=== PATIENT | female | born 1980 | race Caucasian/White ===

== ENCOUNTER 2017-12-21 10:41 | Emergency (ER) | payer OTHER ==
[~2017-12-21] VITALS: Ht 157.5 cm; Wt 68.1 kg
[2017-12-21] MEDS ORDERED: PRAZ1 PO (11:17)
[2017-12-21] MEDS ORDERED: SERT50TA12 PO (11:17)
[2017-12-21] MEDS ORDERED: LURA40 PO (11:17)
[2017-12-21] MEDS ORDERED: LOPERAMIDE HCL 2 MG CAPSULE PO ONE (11:45)
[2017-12-21] MEDS ORDERED: ONDANSETRON HCL 4 MG/2 ML VIAL IVP ONE (11:45)
[2017-12-21] MEDS ORDERED: SODIUM CHLORIDE 0.9% 1,000 ML IV ONE (11:45)
[2017-12-21 12:06] LABS: ANION GAP 10 mmol/L (8-16); CALCIUM, TOTAL 9.5 mg/dL (8.8-10.5); CARBON DIOXIDE 26 mmol/L (22-29); CHLORIDE 104 mmol/L (98-107); CREATININE 0.92 mg/dL (0.60-1.30); GLOMERULAR FILTR. RATE CALC > 60 mL/min (>60); GLUCOSE,RANDOM 101 mg/dL (70-110); POTASSIUM 4.5 mmol/L (3.5-5.1); SODIUM SERUM 140 mmol/L (136-145); UREA NITROGEN, BLOOD 15 mg/dL (7-18)
[2017-12-21 12:09] LABS: BASOPHILS % (AUTO) 0.6 % (0.0-2.0); EOSINOPHILS % (AUTO) 1.7 % (1.0-6.0); HEMATOCRIT 40.5 % (36-46); HEMOGLOBIN 13.8 g/dL (12.0-16.0); LYMPHOCYTES # (AUTO) 1.7 K/uL (1.0-4.8); LYMPHOCYTES % (AUTO) 23.2 % (22.0-44.0); MEAN CORPUSCULAR HEMOGLOBIN 28.2 pg (26.0-34.0); MEAN CORPUSCULAR HGB CONC 34.1 G/dL (31.0-37.0); MEAN CORPUSCULAR VOLUME 83 fL (80-100); MONOCYTES # (AUTO) 0.7 K/uL (0.1-1.0); MONOCYTES % (AUTO) 9.4 % (2.0-9.0); NEUTROPHILS # (AUTO) 4.7 K/uL (1.8-7.7); NEUTROPHILS % (AUTO) 65.1 % (40.0-70.0); PLATELET COUNT (AUTO) 309 K/uL (150-450); RED BLOOD CELL COUNT(AUTO) 4.89 MIL/uL (4.00-5.20); RED CELL DISTRIBUTION WIDTH 15.1 % (11.5-14.5)
[2017-12-21 12:14] LABS: ALANINE AMINOTRANSFERASE 68 U/L (12-78); ALBUMIN 4.1 g/dL (3.4-5.0); ALKALINE PHOSPHATASE 63 U/L (46-116); ASPARTATE AMINOTRANSFERASE 36 U/L (15-37); BILIRUBIN,TOTAL 0.4 mg/dL (0.1-1.0); TOTAL PROTEIN, SERUM 8.1 g/dL (6.4-8.2)
[2017-12-21 13:26] VITALS: BP 121/83
== END 2017-12-21 13:40 | disposition home or self-care (01) ==
LOC: EMS 11:10
DX: R11.2 Nausea with vomiting, unspecified (principal); R19.7 Diarrhea, unspecified
CPT/HCPCS: 36415; 80053; 84703; 85025; 96361; 96374; 99284; J2405; J7030

== ENCOUNTER 2018-03-12 12:24 | Inpatient (IN) | payer MEDICAID, OTHER ==
[~2018-03-12] VITALS: Ht 157.5 cm; Wt 79.2 kg
[~2018-03-12 12:24] MED LIST: LURA40 PO; PRAZ1 PO; SERT50TA12 PO
[2018-03-12 13:03] LABS: BASOPHILS % (AUTO) 0.7 % (0.0-2.0); EOSINOPHILS % (AUTO) 0.7 % (1.0-6.0); HEMATOCRIT 40.9 % (36-46); LYMPHOCYTES % (AUTO) 16.9 % (22.0-44.0); MEAN CORPUSCULAR HEMOGLOBIN 28.9 pg (26.0-34.0); MEAN CORPUSCULAR HGB CONC 34.2 G/dL (31.0-37.0); MEAN CORPUSCULAR VOLUME 84 fL (80-100); MONOCYTES # (AUTO) 0.6 K/uL (0.1-1.0); MONOCYTES % (AUTO) 9.6 % (2.0-9.0); NEUTROPHILS # (AUTO) 4.5 K/uL (1.8-7.7); NEUTROPHILS % (AUTO) 72.1 % (40.0-70.0); PLATELET COUNT (AUTO) 330 K/uL (150-450); RED BLOOD CELL COUNT(AUTO) 4.84 MIL/uL (4.00-5.20); RED CELL DISTRIBUTION WIDTH 14.6 % (11.5-14.5)
[2018-03-12 13:07] LABS: ANION GAP 12 mmol/L (8-16); CALCIUM, TOTAL 8.7 mg/dL (8.8-10.5); CARBON DIOXIDE 27 mmol/L (22-29); CHLORIDE 102 mmol/L (98-107); CREATININE 0.84 mg/dL (0.60-1.30); GLOMERULAR FILTR. RATE CALC > 60 mL/min (>60); GLUCOSE,RANDOM 112 mg/dL (70-110); SODIUM SERUM 141 mmol/L (136-145); UREA NITROGEN, BLOOD 8 mg/dL (7-18)
[2018-03-12 13:13] LABS: ALANINE AMINOTRANSFERASE 74 U/L (12-78); ALBUMIN 4.1 g/dL (3.4-5.0); ALKALINE PHOSPHATASE 59 U/L (46-116); ASPARTATE AMINOTRANSFERASE 38 U/L (15-37); BILIRUBIN,TOTAL 0.4 mg/dL (0.1-1.0); TOTAL PROTEIN, SERUM 7.8 g/dL (6.4-8.2)
[2018-03-12] MEDS ORDERED: LORazepam 1 MG TABLET PO ONE (13:30)
[2018-03-12] MEDS ORDERED: POTASSIUM CHLORIDE 20 MEQ ER TABLET PO ONE (13:30)
[2018-03-12] MEDS ORDERED: LORazepam 2 MG TABLET PO PRN (13:45)
[2018-03-12 14:04] LABS: AMPHET/METH SCREEN,URINE POSITIVE (NEGATIVE); BARBITURATE SCREEN, URINE NEGATIVE (NEGATIVE); BENZODIAZEPINES SCREEN,URINE NEGATIVE (NEGATIVE); CANNABINOID SCREEN,URINE NEGATIVE (NEGATIVE); COCAINE SCREEN,URINE NEGATIVE (NEGATIVE); METHADONE SCREEN, URINE NEGATIVE (NEGATIVE); OPIATE SCREEN,URINE NEGATIVE (NEGATIVE)
[2018-03-12 14:05] LABS: PHENCYCLIDINE SCREEN,URINE NEGATIVE (NEGATIVE)
[2018-03-12] MEDS: HALOPERIDOL 5 MG TABLET PO PRN (16:59)
[2018-03-12 19:27] VITALS: BP 135/89
[2018-03-12] MEDS: ZOLPIDEM TARTRATE 10 MG TABLET PO PRN (20:10)
[2018-03-12] MEDS ORDERED: LORazepam 2 MG/ML VIAL IM ONE (20:45)
[2018-03-12] MEDS ORDERED: DiphenhydrAMINE HCL 50 MG/ML VIAL IM ONE (20:45)
[2018-03-12] MEDS ORDERED: HALOPERIDOL LACTATE 5 MG/ML VIAL IM ONE (20:45)
[2018-03-13 09:05] LABS: CHOL/HDL RATIO 6.2 (3.9-5.7); FREE T4 (FREE THYROXINE) 0.88 ng/dL (0.76-1.46); POTASSIUM 3.3 mmol/L (3.5-5.1); THYROID STIMULATING HORMONE 9.42 uIU/mL (0.36-3.74)
[2018-03-13] MEDS: NICOTINE 21 MG/24 HOUR PATCH TD SCH (09:19)
[2018-03-13] MEDS ORDERED: POTASSIUM CHLORIDE 20 MEQ ER TABLET PO ONE (13:45)
[2018-03-13] MEDS ORDERED: CYANOCOBALAMIN 1,000 MCG/ML VIAL IM ONE (13:45)
[2018-03-13] MEDS ORDERED: LORazepam 2 MG TABLET PO PRN (13:45)
[2018-03-13] MEDS: MULTIVITAMINS WITH MINERALS, THERAPEUTIC TABLET PO SCH (13:46)
[2018-03-13] MEDS: FOLIC ACID 1 MG TABLET PO SCH (13:47)
[2018-03-13 13:52] VITALS: BP 109/69
[2018-03-13 15:00] VITALS: BP 103/59
[2018-03-13 16:00] VITALS: BP 103/63
[2018-03-13] MEDS: THIAMINE HCL 100 MG TABLET PO SCH (16:45)
[2018-03-13 17:00] VITALS: BP 107/62
[2018-03-13 17:18] VITALS: BP 113/63
[2018-03-13] MEDS: ZOLPIDEM TARTRATE 10 MG TABLET PO PRN (20:43)
[2018-03-13 21:30] VITALS: BP 102/75
[2018-03-14] MEDS: LEVOTHYROXINE SODIUM 25 MCG TABLET PO SCH (06:33)
[2018-03-14] MEDS ORDERED: LORazepam 2 MG TABLET PO PRN (07:00)
[2018-03-14 08:15] VITALS: BP 103/50
[2018-03-14] MEDS: FOLIC ACID 1 MG TABLET PO SCH (08:44)
[2018-03-14] MEDS: ARIPiprazole 10 MG TABLET PO SCH (08:44)
[2018-03-14] MEDS: THIAMINE HCL 100 MG TABLET PO SCH ×2 (08:44→16:36)
[2018-03-14] MEDS: MULTIVITAMINS WITH MINERALS, THERAPEUTIC TABLET PO SCH (08:44)
[2018-03-14] MEDS: LORazepam 2 MG TABLET PO SCH ×4 (08:45→20:05)
[2018-03-14] MEDS: SERTRALINE HCL 50 MG TABLET PO SCH (08:52)
[2018-03-14] MEDS: NICOTINE 21 MG/24 HOUR PATCH TD SCH (08:53)
[2018-03-14 10:25] VITALS: BP 108/55
[2018-03-14 13:47] VITALS: BP 105/59
[2018-03-14 16:00] VITALS: BP 148/60
[2018-03-14] MEDS: HALOPERIDOL 5 MG TABLET PO PRN (16:36)
[2018-03-14 20:02] VITALS: BP 118/62
[2018-03-15 01:44] VITALS: BP 112/60
[2018-03-15] MEDS: ZOLPIDEM TARTRATE 10 MG TABLET PO PRN (01:51)
[2018-03-15] MEDS: LEVOTHYROXINE SODIUM 25 MCG TABLET PO SCH (06:17)
[2018-03-15] MEDS: SERTRALINE HCL 50 MG TABLET PO SCH (08:27)
[2018-03-15] MEDS: MULTIVITAMINS WITH MINERALS, THERAPEUTIC TABLET PO SCH (08:27)
[2018-03-15] MEDS: THIAMINE HCL 100 MG TABLET PO SCH (08:27)
[2018-03-15] MEDS: FOLIC ACID 1 MG TABLET PO SCH (08:27)
[2018-03-15] MEDS: ARIPiprazole 10 MG TABLET PO SCH (08:27)
[2018-03-15] MEDS: LORazepam 2 MG TABLET PO SCH (08:27)
[2018-03-15] MEDS: HALOPERIDOL 5 MG TABLET PO PRN (08:27)
[2018-03-15 08:28] VITALS: BP 102/62
[2018-03-15 08:30] VITALS: BP 102/62
[2018-03-15] MEDS: NICOTINE 21 MG/24 HOUR PATCH TD SCH (08:32)
[2018-03-15 09:24] LABS: ALANINE AMINOTRANSFERASE 65 U/L (12-78); ALBUMIN 3.2 g/dL (3.4-5.0); ALKALINE PHOSPHATASE 45 U/L (46-116); ANION GAP 10 mmol/L (8-16); ASPARTATE AMINOTRANSFERASE 31 U/L (15-37); BILIRUBIN,TOTAL 0.2 mg/dL (0.1-1.0); CALCIUM, TOTAL 8.1 mg/dL (8.8-10.5); CARBON DIOXIDE 24 mmol/L (22-29); CHLORIDE 108 mmol/L (98-107); CREATININE 0.78 mg/dL (0.60-1.30); GLOMERULAR FILTR. RATE CALC > 60 mL/min (>60); GLUCOSE,RANDOM 88 mg/dL (70-110); POTASSIUM 3.6 mmol/L (3.5-5.1); SODIUM SERUM 142 mmol/L (136-145); TOTAL PROTEIN, SERUM 6.3 g/dL (6.4-8.2); UREA NITROGEN, BLOOD 12 mg/dL (7-18)
[2018-03-15] MEDS ORDERED: SERT50TA12 PO (09:37)
[2018-03-15] MEDS ORDERED: ARIP10TA8 PO ×2 (09:37→11:39)
[2018-03-15 10:18] LABS: AMPHET/METH SCREEN,URINE POSITIVE (NEGATIVE); BARBITURATE SCREEN, URINE NEGATIVE (NEGATIVE); BENZODIAZEPINES SCREEN,URINE NEGATIVE (NEGATIVE); CANNABINOID SCREEN,URINE NEGATIVE (NEGATIVE); COCAINE SCREEN,URINE NEGATIVE (NEGATIVE); METHADONE SCREEN, URINE NEGATIVE (NEGATIVE); OPIATE SCREEN,URINE NEGATIVE (NEGATIVE)
[2018-03-15 10:19] LABS: PHENCYCLIDINE SCREEN,URINE NEGATIVE (NEGATIVE)
[2018-03-15 10:50] LABS: APPEARANCE,URINE TURBID (CLEAR); BILIRUBIN,URINE NEGATIVE (NEGATIVE); GLUCOSE, URINE (UA) NEGATIVE (NEGATIVE); KETONES,URINE NEGATIVE (NEGATIVE); LEUKOCYTE ESTERASE ,URINE NEGATIVE (NEGATIVE); NITRATE,URINE NEGATIVE (NEGATIVE); OCCULT BLOOD,URINE MODERATE (NEGATIVE); PROTEIN,URINE NEGATIVE (NEGATIVE); UROBILINOGEN,URINE 0.2 mg/dL (<=1.0)
[2018-03-15 10:55] LABS: FOLATE SERUM 10.9 ng/mL (5.4-)
[2018-03-15 11:26] LABS: CALCIUM OXALATE CRYSTALS,UR Moderate /LPF (None Seen); SQUAMOUS EPITHELIAL CELL,UR Moderate /LPF (None Seen); WBC,URINE None Seen /HPF (0-5)
[2018-03-15 11:27] LABS: AMORPHOUS SEDIMENT,UR Moderate /LPF (None Seen); BACTERIA,URINE Many /HPF (None Seen)
[2018-03-15] MEDS ORDERED: LEVO25TA9 PO (11:39)
[2018-03-16] MEDS ORDERED: LORazepam 1 MG TABLET PO PRN (07:00)
[2018-03-16] MEDS ORDERED: LORazepam 1 MG TABLET PO SCH (09:00)
[2018-03-17] MEDS ORDERED: LORazepam 1 MG TABLET PO PRN (07:00)
== END 2018-03-15 15:30 | disposition home or self-care (01) | DRG 750 ==
LOC: EMS 12:24 → B3A 14:53
DX: F25.1 Schizoaffective disorder, depressive type (principal); R45.851 Suicidal ideations; F15.10 Other stimulant abuse, uncomplicated; F12.90 Cannabis use, unspecified, uncomplicated; R03.0 Elevated blood-pressure reading, without diagnosis of hypertension; F10.20 Alcohol dependence, uncomplicated; E87.6 Hypokalemia; E78.5 Hyperlipidemia, unspecified; E03.9 Hypothyroidism, unspecified; F17.200 Nicotine dependence, unspecified, uncomplicated; Z65.3 Problems related to other legal circumstances; Z79.899 Other long term (current) drug therapy; Z91.5 Personal history of self-harm; Z71.6 Tobacco abuse counseling; Z71.51 Drug abuse counseling and surveillance of drug abuser; Z71.41 Alcohol abuse counseling and surveillance of alcoholic
CPT/HCPCS: 80074; 80307; 82306; 82607; 82746; 83036; 83735; 84132; 84439; 84443; 87086; 99285; 99406; G0480; J1200; J1630; J2060; J3420

== ENCOUNTER 2023-08-17 08:43 | Emergency (ER) | payer MEDICAID, OTHER ==
[~2023-08-17] VITALS: Ht 154.9 cm; Wt 75.0 kg
[~2023-08-17 08:43] MED LIST changes: +ARIP10TA38 PO; +LEVO25TA9 PO; -LURA40 PO; -PRAZ1 PO; +SERT-158 PO; +SERT-439 PO; -SERT50TA12 PO
[2023-08-17 08:48] VITALS: TEMP 98.8
[2023-08-17] MEDS ORDERED: KETOROLAC TROMETHAMINE 60 MG/2 ML VIAL IM ONE (10:00)
[2023-08-17] MEDS ORDERED: IBUP-1492 PO (11:24)
[2023-08-17] MEDS ORDERED: METH-659 PO (11:24)
[2023-08-17 11:33] VITALS: BP 142/80; PULSE 72; RESP 16
== END 2023-08-17 11:36 | disposition home or self-care (01) ==
LOC: EMS 08:47
DX: S16.1XXA Strain of muscle, fascia and tendon at neck level, initial encounter (principal); N64.4 Mastodynia; R07.89 Other chest pain; F32.A Depression, unspecified; F15.90 Other stimulant use, unspecified, uncomplicated; Z98.890 Other specified postprocedural states; V49.88XA Car occupant (driver) (passenger) injured in other specified transport accidents, initial encounter; Y93.89 Activity, other specified; Y92.89 Other specified places as the place of occurrence of the external cause; Y99.8 Other external cause status
CPT/HCPCS: 99283; 71045; 96372; J1885

== ENCOUNTER 2025-08-07 20:47 | Emergency (ER) | payer OTHER ==
[~2025-08-07] VITALS: Ht 152.4 cm; Wt 72.7 kg
[~2025-08-07 20:47] MED LIST changes: -ARIP10TA38 PO; +IBUP-1492 PO; -LEVO25TA9 PO; +METH-659 PO; -SERT-158 PO; -SERT-439 PO
[2025-08-07 21:51] VITALS: BP 132/75; PULSE 78; RESP 16; TEMP 98.4; O2SAT 100
[2025-08-07] MEDS: PERTUSS(ACELL),DIPH,TET/PF 0.5 ML SYRINGE [ADULT] IM. ONE (22:43)
== END 2025-08-07 23:26 | disposition left against medical advice (07) ==
LOC: EMS 21:05
DX: S51.812A Laceration without foreign body of left forearm, initial encounter (principal); Z53.21 Procedure and treatment not carried out due to patient leaving prior to being seen by health care provider; X58.XXXA Exposure to other specified factors, initial encounter; Y93.89 Activity, other specified; Y92.89 Other specified places as the place of occurrence of the external cause; Y99.8 Other external cause status
CPT/HCPCS: 90715; 99281